=== PATIENT | male | born 1970 | race African-American/Black ===

== ENCOUNTER 2017-05-05 12:24 | Emergency (ER) | payer OTHER ==
[2017-05-05] MEDS: IBUPROFEN 800 MG TABLET. PO (12:57)
== END 2017-05-05 13:53 | disposition home or self-care (01) ==
LOC: ER 12:24
DX: S46.212A Strain of muscle, fascia and tendon of other parts of biceps, left arm, initial encounter (principal); F32.9 Major depressive disorder, single episode, unspecified; X58.XXXA Exposure to other specified factors, initial encounter; Y93.89 Activity, other specified; Y92.89 Other specified places as the place of occurrence of the external cause; Y99.8 Other external cause status
CPT/HCPCS: 73060; 99284

== ENCOUNTER 2017-05-13 15:07 | Emergency (ER) | payer OTHER ==
[2017-05-13] MEDS: IBUPROFEN 800 MG TABLET. PO (15:25)
== END 2017-05-13 16:20 | disposition home or self-care (01) ==
LOC: ER 15:07
DX: S49.91XA Unspecified injury of right shoulder and upper arm, initial encounter (principal); W01.0XXA Fall on same level from slipping, tripping and stumbling without subsequent striking against object, initial encounter; Y93.89 Activity, other specified; Y99.8 Other external cause status; Y92.89 Other specified places as the place of occurrence of the external cause
CPT/HCPCS: 73030; 99284

== ENCOUNTER 2018-06-19 08:45 | Emergency (ER) | payer OTHER ==
[~2018-06-19] VITALS: Ht 175.3 cm; Wt 106.6 kg
[~2018-06-19 08:45] MED LIST: FLUO20TA11 PO; IBUP-1060 PO
[2018-06-19] MEDS ORDERED: LIDOCAINE (700MG/PATCH) PATCH. TD ONE (09:15)
[2018-06-19] MEDS ORDERED: METHOCARBAMOL 750 MG TABLET PO ONE (09:15)
[2018-06-19] MEDS ORDERED: KETOROLAC 60 MG/2 ML VIAL. IM ONE (09:15)
--- NOTE | 2018-06-19 09:15 | PHYS DOC ---
Past Medical History Past Medical History: Depression Additional Past Medical Histor: unknown "psych" dx, Past Surgical History: No Surgical History Alcohol Use: None Drug Use: Cocaine Adult General Chief Complaint Chief Complaint: FLANK PAIN HPI HPI 47-year-old male presents to ER via POV for complaints of right mid back pain for the past 3 days. Patient denies any recent falls or injury. Patient denies pain radiating to any other area. Patient denies urinary symptoms, fever or chills, flu like illness, SOA, or CP. 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 Pt reports pain is constant and aching/tight in nature. He reports pain increases with repositioning/movements and palp. of area. He denies swelling/numbness or tingling. He denies recent travel. Pt is daily smoker and drinks approx. 6 pk of beer daily- denies any etoh intake today. Review of Systems Review of Systems Constitutional: Denies fever or chills. Denies weakness Eyes: Denies change in visual acuity, redness, or eye pain [] HENT: Denies nasal congestion or sore throat [] Respiratory: Denies cough or shortness of breath [] Cardiovascular: Denies CP GI: Denies abdominal pain, nausea, vomiting, bloody stools or diarrhea [] : Denies dysuria or hematuria. Denies incontinence of bowel/bladder Musculoskeletal: Denies neck pain or joint pain. Reports rt side mid back pain- denies radiation of pain to extremities/lower back Integument: Denies rash or skin lesions [] Neurologic: Denies headache, focal weakness or sensory changes [] All other systems were reviewed and found to be within normal limits, except as documented in this note. Current Medications Current Medications Current Medications Medications (Trade) Dose Ordered Sig/Rufino Start Time Stop Time Status Last Admin Dose Admin Ketorolac Tromethamine (Toradol Im) 30 mg 1X ONCE 06/19/18 09:15 06/19/18 09:16 DC 06/19/18 09:29 30 MG Lidocaine (Lidoderm) 1 patch 1X ONCE 06/19/18 09:15 06/19/18 09:16 DC 06/19/18 09:28 1 PATCH Methocarbamol (Robaxin) 750 mg 1X ONCE 06/19/18 09:15 06/19/18 09:16 DC 06/19/18 09:28 750 MG Allergies Allergies Allergies Coded Allergies Type Severity Reaction Last Updated Verified No Known Drug Allergies 07/27/15 No Physical Exam Physical Exam Constitutional: Well developed, well nourished, no acute distress, non-toxic appearance. Steady unassisted gait HENT: Normocephalic, atraumatic, oropharynx moist, nose normal. [] Eyes: Pupils equal, conjunctiva normal, no discharge. [] Neck: Normal range of motion, no tenderness, supple, no stridor. [] Cardiovascular: Heart rate regular rhythm, no murmur [] Lungs & Thorax: Bilateral breath sounds clear to auscultation. Resp. equal/ nonlabored Abdomen: Bowel sounds normal, soft, no tenderness Skin: Warm, dry, no erythema, no rash. [] Back: Tender on palp. mid rt side back- no crepitus/visible injury/swelling- pt has facial grimacing with repositioning and with palp. of area, no CVA tenderness. [] Extremities: No tenderness, no cyanosis, no clubbing, ROM intact, no edema. 2+ radial bilat. Neurologic: Alert and oriented X 3, normal motor function, normal sensory function, no focal deficits noted. [] Psychologic: Affect normal, judgement normal, mood normal. [] Current Patient Data Vital Signs Vital Signs Date Time Temp Pulse Resp B/P (MAP) Pulse Ox O2 Delivery O2 Flow Rate FiO2 06/19/18 08:57 97.6 64 18 149/99 (116) 98 Room Air 97.6 Lab Values Laboratory Tests Test 06/19/18 08:58 Urine Collection Type Void Urine Color Yellow Urine Clarity Clear Urine pH 5.5 Urine Specific [place] 1.020 Urine Protein Negative mg/dL (NEG-TRACE) Urine Glucose (UA) Negative mg/dL (NEG) Urine Ketones (Stick) Negative mg/dL (NEG) Urine Blood Negative (NEG) Urine Nitrite Negative (NEG) Urine Bilirubin Negative (NEG) Urine Urobilinogen Dipstick 0.2 mg/dL (0.2 mg/dL) Urine Leukocyte Esterase Negative (NEG) Urine RBC Occ /HPF (0-2) Urine WBC 0 /HPF (0-4) Urine Squamous Epithelial Cells None /LPF Urine Bacteria 0 /HPF (0-FEW) Urine Mucus Slight /LPF EKG EKG [] Radiology/Procedures Radiology/Procedures PROCEDURE: CHEST PA & LATERAL CHEST PA LATERAL History: rt lower rib pain, no injury Comparison: None. Findings: The cardiomediastinal silhouette is normal. Pulmonary vasculature is normal. The lungs are clear. No pleural effusion or pneumothorax is seen. There is no acute bone abnormality. IMPRESSION: No acute cardiopulmonary process. Electronically signed by: Cristopher David MD (06/19/2018 10:25 AM) [id number] DICTATED and SIGNED BY: CRISTOPHER DAVID MD DATE: 06/19/18 1021 Course & Med Decision Making Course & Med Decision Making Pertinent Labs and Imaging studies reviewed. (See chart for details) Patient was evaluated in the ER for complaints of right mid back pain which has been ongoing for 3 days- denying any injury. Patient had chest x-ray which was negative for acute findings and UA negative for infection, blood, ketones. Patient was treated with dose of Toradol and oral Robaxin. Patient had Lidoderm patch applied to focal area of tenderness on the right side mid back. Patient reports he has had some improvement in pain. He remains PMS intact all extremities with full range of motion and steady unassisted gait. Pt reported he been off of his blood pressure medicine for quite a while and so discussion had with patient regarding follow-up with primary care physician for recheck of blood pressure and if symptoms persist. BP was 149/99 while in the ER. Patient will be provided with community clinic and physician referral information for follow-up purposes. Will provide prescription for Robaxin patient educated on medication. Discharge instructions were discussed and education provided on signs and symptoms to return to ER for. Patient was advised not to drink alcohol if taking Robaxin prescription as well as not to drive. At time of discharge discussion patient was in no visible distress. Dragon Disclaimer Dragon Disclaimer This electronic medical record was generated, in whole or in part, using a voice recognition dictation system. Departure Departure Impression: Primary Impression: Muscle strain of right upper back Additional Impression: Musculoskeletal back pain Disposition: 01 HOME, SELF-CARE Condition: STABLE Referrals: NO PCP (PCP) Patient Instructions: Muscle Strain, Musculoskeletal Pain Additional Instructions: Ibuprofen and/or Tylenol as needed for pain as directed on container. Sports cream as directed on container as needed. Epsom salt soaks as directed on container may also help with pain. Remove the lidocaine patch applied in the ER in 12 hours- over the counter patches can be used as directed on container. Ice and heat compress to affected area every 3-4 hours every 20-30 minutes. If taking Robaxin prescription no driving or drinking alcohol. If symptoms persist follow-up with primary doctor for re-evaluation. You should have your blood pressure rechecked by your doctor as you have been off of your blood pressure medication for awhile. Your blood pressure was 149/ 99 while in the ER. Scripts Methocarbamol (ROBAXIN-750) 750 Mg Tablet 1 TAB PO BID PRN for PAIN, #8 TAB 0 Refills No drinking alcohol or driving if taking this medication Prov: SUZANNE MATTHEW APRN 06/19/18 Problem Qualifiers SUZANNE MATTHEW APRN Jun 19, 2018 09:15
[2018-06-19 09:24] LABS: BILIRUBIN,URINE NEGATIVE (NEG); CLARITY,URINE CLEAR; COLOR,URINE YELLOW; NITRITE,URINE NEGATIVE (NEG); PH,URINE 5.5; PROTEIN,URINE NEGATIVE (NEG-TRACE); UROBILINOGEN,URINE 0.2 mg/dL (0.2 mg/dL)
[2018-06-19 09:55] LABS: BACTERIA,URINE 0 /HPF (0-FEW); RBC,URINE OCC /HPF (0-2); WBC,URINE 0 /HPF (0-4)
--- NOTE | 2018-06-19 10:28 | RAD ---
CHEST PA LATERAL History: rt lower rib pain, no injury Comparison: None. Findings: The cardiomediastinal silhouette is normal. Pulmonary vasculature is normal. The lungs are clear. No pleural effusion or pneumothorax is seen. There is no acute bone abnormality. IMPRESSION: No acute cardiopulmonary process. Electronically signed by: Cristopher Brandon MD (06/19/2018 10:25 AM) [id number]
[2018-06-19] MEDS ORDERED: METH-38 PO (10:39)
[2018-06-19 10:55] VITALS: BP 156/102
== END 2018-06-19 10:55 | disposition home or self-care (01) ==
LOC: ER 08:45
DX: S29.012A Strain of muscle and tendon of back wall of thorax, initial encounter (principal); X58.XXXA Exposure to other specified factors, initial encounter; Y93.89 Activity, other specified; Y92.89 Other specified places as the place of occurrence of the external cause; Y99.8 Other external cause status
CPT/HCPCS: 71046; 81001; 96372; 99284; J1885; 99283

== ENCOUNTER 2018-08-14 15:57 | Emergency (ER) | payer OTHER ==
[~2018-08-14] VITALS: Ht 175.3 cm; Wt 106.6 kg
[~2018-08-14 15:57] MED LIST changes: +METH-38 PO
--- NOTE | 2018-08-14 16:14 | PHYS DOC ---
Past Medical History Past Medical History: Depression, Hypertension, Other Additional Past Medical Histor: unknown "psych" dx, Past Surgical History: No Surgical History Alcohol Use: Heavy Drug Use: Cocaine Adult General Chief Complaint Chief Complaint: LOWER EXTREMITY SWELLING HPI HPI Patient is a 47 year old male presents to the ED complaining of left lower leg swelling 4 days ago. Patient states that he feels like he was bit by something. States he thinks it was on the back of his calf but states no bite ling. States he started to notice swelling 4 days ago. Describes the pain as achy. Rates the pain as 6 out of 10. Denies injury, erythema, redness, warmth, fever, nausea/vomiting, chest pain, shortness of breath, paresthesias, weakness, dizziness or recent travel. Review of Systems Review of Systems Constitutional: Denies fever or chills [] Eyes: Denies change in visual acuity, redness, or eye pain [] HENT: Denies nasal congestion or sore throat [] Respiratory: Denies cough or shortness of breath [] Cardiovascular: No additional information not addressed in HPI [] GI: Denies abdominal pain, nausea, vomiting, bloody stools or diarrhea [] : Denies dysuria or hematuria [] Musculoskeletal: Complains of left calf pain. Denies back pain. Integument: Denies rash or skin lesions [] Neurologic: Denies headache, focal weakness or sensory changes [] All other systems were reviewed and found to be within normal limits, except as documented in this note. Allergies Allergies Allergies Coded Allergies Type Severity Reaction Last Updated Verified No Known Drug Allergies 07/27/15 No Physical Exam Physical Exam Constitutional: Well developed, well nourished, no acute distress, non-toxic appearance. [] HENT: Normocephalic, atraumatic Cardiovascular:Heart rate regular rhythm, no murmur [] Lungs & Thorax: Bilateral breath sounds clear to auscultation [] Abdomen: Bowel sounds normal, soft, no tenderness, no masses, no pulsatile masses. [] Skin: Warm, dry, no erythema, no rash. [] Back: No tenderness, no CVA tenderness. [] Extremities: mild left calf tenderness/swelling, No overlying skin changes. no cyanosis, no clubbing, ROM intact, no edema. [] Neurologic: Alert and oriented X 3, normal motor function, normal sensory function, no focal deficits noted. [] Psychologic: Affect normal, judgement normal, mood normal. [] Current Patient Data Vital Signs Vital Signs Date Time Temp Pulse Resp B/P (MAP) Pulse Ox O2 Delivery O2 Flow Rate FiO2 08/14/18 16:19 97.8 79 18 139/93 (108) 98 Room Air 97.8 EKG EKG [] Radiology/Procedures Radiology/Procedures PROCEDURE: VENOUS LOWER EXTREMITY LEFT Left leg venous Doppler study: Clinical indications: Left calf swelling and pain. Findings: Duplex sonography (including jackson scale evaluation and color flow and waveform spectral analysis) of the proximal aspect of the greater saphenous vein and the proximal aspect of the profunda femoral vein and the entire length of the common femoral and superficial femoral and popliteal veins and the tibioperoneal trunk and the proximal aspect of the posterior tibial and peroneal veins of the left leg was performed. Normal compressibility, augmentation of color Doppler flow after calf compression, and respiratory variation of Doppler flow is seen. Thus, there are no sonographic findings of deep venous thrombosis within these veins. Impression: There are no sonographic findings of deep venous thrombosis within the veins discussed above of the left lower extremity. There is a large complex heterogeneous cystic and solid lesion within the popliteal fossa extending into the proximal calf measuring 13 cm x 4.6 cm x 1.9 cm in size. This is avascular and could represent a hematoma.[] Course & Med Decision Making Course & Med Decision Making Pertinent Labs and Imaging studies reviewed. (See chart for details) []Discussed US findings with patient. Lab and additional imaging ordered and pending. Transfer of care to CARMITA Garcia. Will await pending labs/imaging and disposition patient. Dragon Disclaimer Dragon Disclaimer This electronic medical record was generated, in whole or in part, using a voice recognition dictation system. Departure Departure Impression: Primary Impression: Spontaneous hematoma of lower leg Referrals: NO PCP (PCP) FREDDY HAIDER Aug 14, 2018 16:14
--- NOTE | 2018-08-14 16:56 | RAD ---
Left leg venous Doppler study: Clinical indications: Left calf swelling and pain. Findings: Duplex sonography (including jackson scale evaluation and color flow and waveform spectral analysis) of the proximal aspect of the greater saphenous vein and the proximal aspect of the profunda femoral vein and the entire length of the common femoral and superficial femoral and popliteal veins and the tibioperoneal trunk and the proximal aspect of the posterior tibial and peroneal veins of the left leg was performed. Normal compressibility, augmentation of color Doppler flow after calf compression, and respiratory variation of Doppler flow is seen. Thus, there are no sonographic findings of deep venous thrombosis within these veins. Impression: There are no sonographic findings of deep venous thrombosis within the veins discussed above of the left lower extremity. There is a large complex heterogeneous cystic and solid lesion within the popliteal fossa extending into the proximal calf measuring 13 cm x 4.6 cm x 1.9 cm in size. This is avascular and could represent a hematoma. Electronically signed by: Coy Boland MD (08/14/2018 4:54 PM) [id number]
[2018-08-14 17:26] LABS: BASO # 0.1 x10^3/uL (0.0-0.2); BASO % 1 % (0-3); EOS # 0.2 x10^3/uL (0.0-0.7); EOS % 2 % (0-3); HEMOGLOBIN 12.7 g/dL (13.0-17.5); LYMPH # 3.1 x10^3/uL (1.0-4.8); LYMPH % 35 % (24-48); MEAN CORPUSCULAR HEMOGLOBIN 30 pg (25-35); MEAN CORPUSCULAR HGB CONC 33 g/dL (31-37); MEAN CORPUSCULAR VOLUME 91 fL (79-100); MONO % 12 % (0-9); NEUT # 4.4 x10^3uL (1.8-7.7); NEUT % 50 % (31-73); PLATELET COUNT 252 x10^3/uL (140-400); RED BLOOD COUNT 4.18 x10^6/uL (4.30-5.70); RED CELL DISTRIBUTION WIDTH 14.1 % (11.5-14.5); WHITE BLOOD COUNT 8.8 x10^3/uL (4.0-11.0)
[2018-08-14 17:39] LABS: CALCIUM 9.2 mg/dL (8.5-10.1); CREATININE 1.5 mg/dL (0.7-1.3); GFR 60.2; POTASSIUM 3.7 mmol/L (3.5-5.1)
--- NOTE | 2018-08-14 17:45 | RAD ---
CT left lower extremity without contrast HISTORY: Large hematoma Axial helical images obtained of the left lower extremity from the distal thigh through the foot without IV contrast. Axial coronal and sagittal reconstruction was performed. There is a moderate joint effusion. There is a complex Alexander's cyst that measures 6.3 x 6.9 x 2.7 cm and contains multiple noncalcified loose bodies. There is diffuse soft tissue edema. There is no other fluid collection. IMPRESSION: 1. Large complex popliteal cyst which appears to be a Alexander's cyst. There are several loose bodies and organizing hemorrhage is possible. 2. Moderate knee effusion. Electronically signed by: Tereso Kapadia III, MD (08/14/2018 5:42 PM) [facility]
[2018-08-14 17:46] LABS: PROTHROMBIN TIME PATIENT 13.2 SEC (11.7-14.0)
[2018-08-14 19:33] VITALS: BP 141/93
== END 2018-08-14 19:33 | disposition home or self-care (01) ==
LOC: ER 15:57
DX: S80.12XA Contusion of left lower leg, initial encounter (principal); M71.22 Synovial cyst of popliteal space [Baker], left knee; M25.462 Effusion, left knee; I10 Essential (primary) hypertension; F10.20 Alcohol dependence, uncomplicated; Y90.9 Presence of alcohol in blood, level not specified; X58.XXXA Exposure to other specified factors, initial encounter; Y93.89 Activity, other specified; Y92.89 Other specified places as the place of occurrence of the external cause; Y99.8 Other external cause status
CPT/HCPCS: 36415; 73700; 80048; 82550; 85025; 85610; 85730; 93971; 99285-25

== ENCOUNTER 2018-11-27 14:11 | Emergency (ER) | payer OTHER ==
[~2018-11-27] VITALS: Ht 175.3 cm; Wt 108.9 kg
[2018-11-27 14:26] VITALS: BP 152/92
[2018-11-27] MEDS ORDERED: DIPHTH,PERTUSS(ACELL),TET TOX 0.5 ML DISP.SYRIN. VAX IM ONE (15:15)
[2018-11-27] MEDS ORDERED: SURGICEL HEMOSTAT 4X8 EACH. TP ONE (15:45)
--- NOTE | 2018-11-27 15:56 | PHYS DOC ---
Past Medical History Past Medical History: Depression, Hypertension, Other Additional Past Medical Histor: unknown "psych" dx, Past Surgical History: No Surgical History Alcohol Use: Heavy Drug Use: Cocaine Adult General Chief Complaint Chief Complaint: LACERATION/AVULSION HPI HPI Patient is a 47 year old since emergency department with complaints of a laceration to his right thumb. 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 Unsure when his last tetanus shot was. He currently rates the pain 7 out of 10 on the pain scale, he denies any alleviating factors. The pain increases when he moves or touches the area. ROS Patient denies any fever, cough, nausea, vomiting, diarrhea, headache, numbness, tingling, or weakness of the affected extremity. All other ROS is neg unless otherwise noted in HPI. Review of Systems Review of Systems See Above Current Medications Current Medications Current Medications Medications (Trade) Dose Ordered Sig/Rufino Start Time Stop Time Status Last Admin Dose Admin Acetaminophen/ Hydrocodone Bitart (Lortab 5/325) 1 tab 1X ONCE 11/27/18 16:15 11/27/18 16:15 DC 11/27/18 16:11 1 TAB Cellulose (Surgicel Hemostat 4x8) 1 each 1X ONCE 11/27/18 15:45 11/27/18 15:46 DC 11/27/18 15:18 1 EACH Diphtheria/ Tetanus/Acell Pertussis (Boostrix) 0.5 ml ONCE ONCE 11/27/18 15:15 11/27/18 15:16 DC 11/27/18 14:46 0.5 ML Allergies Allergies Allergies Coded Allergies Type Severity Reaction Last Updated Verified No Known Drug Allergies 07/27/15 No Physical Exam Physical Exam See Above Constitutional: Well developed, well nourished, no acute distress, non-toxic appearance. [] HENT: Normocephalic, atraumatic, bilateral external ears normal, nose normal. [] Eyes: PERRLA, conjunctiva normal, no discharge. [] Neck: Normal range of motion, no stridor. [] Cardiovascular:Heart rate regular rhythm Lungs & Thorax: Respirations even and unlabored, no retractions, no respiratory distress Skin: Warm, dry, no erythema, no rash; skin avulsion to medial tip of left thumb, bleeding controlled with pressure applied.. [] Extremities: No cyanosis, no clubbing, no edema; full extension and flexion of right thumb, no bony tenderness to palpation, no deformity Neurologic: Alert and oriented X 3, normal motor function, normal sensory function, no focal deficits noted. [] Psychologic: Affect normal, judgement normal, mood normal. [] Current Patient Data Vital Signs Vital Signs Date Time Temp Pulse Resp B/P (MAP) Pulse Ox O2 Delivery O2 Flow Rate FiO2 11/27/18 16:11 16 99 Room Air 11/27/18 14:26 98.6 91 152/92 (112) 98.6 EKG EKG [] Radiology/Procedures Radiology/Procedures Surgicel was applied over the avulsion site of the right thumb, a pressure bandage with Kerlix and Coban was applied, the pressure bandage was removed 30 minutes after it was applied, the site was no longer bleeding. Pressure dressing with Kerlix and Coban were reapplied to the site. Patient was given dressing instructions by this DIRT CONTRACTOR. Course & Med Decision Making Course & Med Decision Making Pertinent Labs and Imaging studies reviewed. (See chart for details) [] Dragon Disclaimer Dragon Disclaimer This electronic medical record was generated, in whole or in part, using a voice recognition dictation system. Departure Departure Impression: Primary Impression: Avulsion of skin of right thumb Additional Impression: Need for Tdap vaccination Disposition: 01 HOME, SELF-CARE Condition: STABLE Referrals: NO PCP (PCP) Patient Instructions: Deep Skin Avulsion, VIS, Tetanus, Diphtheria (Td); Tetanus, Diphtheria, Pertussis (Tdap) - CDC Additional Instructions: Keep the area clean and dry. Follow up with your primary care doctor as needed. Return to the ER if symptoms worsen. Problem Qualifiers Primary Impression: Avulsion of skin of right thumb Encounter type: initial encounter Qualified Codes: S61.001A - Unspecified open wound of right thumb without damage to nail, initial encounter LISBETH GOODWIN [employer] SUPERVIS[employer] Nov 27, 2018 15:56
[2018-11-27] MEDS ORDERED: HYDROcodone/APAP 5/325MG 1 TAB TABLET PO ONE (16:15)
== END 2018-11-27 16:12 | disposition home or self-care (01) ==
LOC: ER 14:11
DX: S61.011A Laceration without foreign body of right thumb without damage to nail, initial encounter (principal); I10 Essential (primary) hypertension; F10.20 Alcohol dependence, uncomplicated; Y90.9 Presence of alcohol in blood, level not specified; W27.4XXA Contact with kitchen utensil, initial encounter; Y93.G3 Activity, cooking and baking; Y92.511 Restaurant or cafe as the place of occurrence of the external cause; Y99.0 Civilian activity done for income or pay
CPT/HCPCS: 90471; 90715; 99283